=== PATIENT | female | born 1970 | race Hispanic/Latino ===

== ENCOUNTER 2017-05-03 10:38 | Outpatient (CLI) | payer BC | END 2017-05-03 10:39 | disposition home or self-care (01) | LOC: BICMAMMO 10:38 | PROVIDERS: ATTEND Student in an Organized Health Care Education/Training Program | DX: Z12.31 Encounter for screening mammogram for malignant neoplasm of breast (principal) | CPT/HCPCS: 77063; 77067 ==

== ENCOUNTER 2017-08-25 12:35 | Emergency (ER) | payer BC ==
--- NOTE | 2017-08-25 13:50 | ULT ---
LEFT UNILATERAL VENOUS DUPLEX ULTRASOUND LOWER EXTREMITY INCLUDING COLOR AND SPECTRAL DOPPLER IMAGING : Date: 08/25/17 HISTORY: 47-year-old female with history of injury and pain to left lower leg, which is hard and warm to touch . TECHNIQUE: Exam performed from groin to ankle including visualized greater saphenous, common femoral, superficia l femoral, profunda femoral, popliteal, trifurcation, and posterior tibial vein regions. FINDINGS: Phasic flow noted at all levels with normal compressibility and normal augmentation. No intraluminal thrombus. IMPRESSION: No evidence for deep venous thrombosis. POS: [facility]
== END 2017-08-25 14:49 | disposition home or self-care (01) ==
LOC: ERS 12:35
DX: L03.116 Cellulitis of left lower limb (principal)

== ENCOUNTER 2022-08-22 09:53 | Outpatient (CLI) | payer BC | END 2022-08-22 09:54 | disposition home or self-care (01) | LOC: BICMAMMO 09:53 | PROVIDERS: ATTEND Family Medicine | DX: Z12.31 Encounter for screening mammogram for malignant neoplasm of breast (principal) | CPT/HCPCS: 77063; 77067 ==